=== PATIENT | female | born 1965 | race Caucasian/White ===

== ENCOUNTER 2020-06-20 18:38 | Emergency (ER) | payer SELFPAY ==
[~2020-06-20] VITALS: Ht 162.6 cm; Wt 104.0 kg
[2020-06-20] MEDS ORDERED: orphenadrine citrate 60mg/2ml inj. IM ONE (20:35)
[2020-06-20] MEDS ORDERED: ketorolac tromethamine 15mg/ml inj. IM ONE (20:35)
--- NOTE | 2020-06-20 20:54 | NUR ---
pt back from xray
[2020-06-20] MEDS ORDERED: IBUP-1984 PO (21:16)
[2020-06-20] MEDS ORDERED: ORPH100T2 PO (21:16)
[2020-06-20 21:28] VITALS: BP 132/81
== END 2020-06-20 21:25 | disposition home or self-care (01) ==
LOC: ER 18:38
DX: M54.5 Low back pain (principal); M79.671 Pain in right foot; G89.29 Other chronic pain; Z90.49 Acquired absence of other specified parts of digestive tract; Z98.890 Other specified postprocedural states; Z79.899 Other long term (current) drug therapy; X50.1XXA Overexertion from prolonged static or awkward postures, initial encounter; Y93.89 Activity, other specified; Y92.89 Other specified places as the place of occurrence of the external cause; Y99.8 Other external cause status
CPT/HCPCS: 73630; 96372; 99284; J1885; J2360

== ENCOUNTER 2023-12-15 11:04 | Emergency (ER) | payer BC ==
[~2023-12-15] VITALS: Ht 165.1 cm; Wt 110.4 kg
[~2023-12-15 11:04] MED LIST: ORPH100T4 PO
[2023-12-15] MEDS ORDERED: PRED20TA PO (12:06)
[2023-12-15] MEDS ORDERED: HYDR5SYR3 PO (12:06)
[2023-12-15] MEDS ORDERED: ALBU8HFA INH (12:06)
[2023-12-15 12:32] VITALS: BP 133/75; PULSE 88; RESP 18; TEMP 99; O2SAT 94
== END 2023-12-15 12:33 | disposition home or self-care (01) ==
LOC: ER 11:05
DX: R05.9 Cough, unspecified (principal); Z79.899 Other long term (current) drug therapy
CPT/HCPCS: 71045; 87502; 87503; 99284